=== PATIENT | male | born 1950 | race Caucasian/White ===

== ENCOUNTER 2024-01-03 11:27 | Emergency (ER) | payer MEDICARE, OTHER, SELFPAY ==
[2024-01-03 11:32] VITALS: BP 175/111
--- NOTE | 2024-01-03 11:52 | ED.GENMED ---
History of Present Illness
<Sarah Hernandes PA-C - Last Filed: 01/03/24 15:31>
General
Chief Complaint: Abdominal Symptoms
Source: patient
Exam Limitations: none
Time Seen by Provider: 01/03/24 11:51
Nursing documentation reviewed up to this point in time: agreed with
Travel History
Have you had any contact with someone who has COVID-19?: No
Do you have any symptoms of coronavirus? Fever > 100 degrees, chills, cough, shortness of breath, sore throat, loss of taste or smell, muscle aches, or headache?: No
History of Present Illness
History of Present Illness:
73-year-old male with a past medical history of hypertension, hyperlipidemia, complete heart block, diverticulitis, diabetes presenting emergency department today abdominal pain and nausea for the past 2 days. Patient states that the pain started
randomly, does not recall what he is doing when pain started. Patient states that the pain significantly improves lying down, but when he is walking or standing up, the pain is a 7 out of 10 in severity. Patient states that he feels the pain most
in the middle of his lower abdomen, but is generally felt all across abdomen. Patient has associated nausea and dry heaving but no vomiting. Patient denies any chest pain, shortness of breath, new back pain. Patient [place] any radiation of the
pain. Patient had past abdominal surgery history of hernia repair but no other surgeries. Patient denies any fevers or chills, other constitutional symptoms.
Past History
<Sarah Hernandes PA-C - Last Filed: 01/03/24 15:31>
Past History
ED Past Medical History: HTN, Hypercholesterolemia and NIDDM
Social History
Tobacco: Smoker
Personal:
Review of Systems
<Sarah Hernandes PA-C - Last Filed: 01/03/24 15:31>
Review of Systems
All Other Systems: ROS reviewed and negative except as documented in HPI and ROS
Phy Exam
<Sarah Hernandes PA-C - Last Filed: 01/03/24 15:31>
Physical Exam
Physical Exam:
Vitals: Patient is hypertensive, otherwise vital signs are stable
General: Patient is well-appearing, no acute distress
Skin: Warm and dry, no rashes or lesion
Head: Normocephalic, atraumatic
Cardiac: Regular rate and rhythm, no murmurs
Peripheral Vascular: No lower extremity swelling, 2+ DP pulses bilaterally
Pulm: Normal respiratory effort, no wheeze
Abdomen: Abdomen is mildly tender to palpation in the lower midline. Patient has no rebound tenderness, no abdominal rigidity, no organomegaly.
Neuro: AAOx3. CN II-XII intact. No focal neurologic deficits.
Course
<Sarah Hernandes PA-C - Last Filed: 01/03/24 15:31>
Orders/Labs/Results
Orders:
Orders
01/03/24 11:35
Electrocardiogram (*1) Urgent
Reason for Study: Abdominal Pain
EKG- Treatment ONCE
01/03/24 12:07
CMP [Comprehensive Metabolic Panel] Urgent
Complete Blood Count/With Diff Urgent
Lipase Urgent
01/03/24 12:18
CT Abd/pelvis W Iv Cont Urgent
Comment:
Reason For Exam: diffuse lower abdominal pain
01/03/24 12:24
Cardiac Monitoring- Treatment ONCE
01/03/24 12:34
Ketorolac [Toradol] 15 mg IV NOW STA
01/03/24 13:58
0.9% Sodium Chloride 250 ml [Nss] 250 ml IV BOLUS
Abnormal Lab Results
01/03/24
12:07
Abs Immat Gran (auto) 0.1 H 10^3/uL
(0-0.05)
Absolute Neuts (auto) 9.3 H 10^3/uL
(1.4-6.5)
Absolute Lymphs (auto) 0.7 L 10^3/uL
(1.2-3.4)
Immature Gran % 0.6 H %
(0-0.5)
Neutrophils % 87.8 H %
(42.2-75.2)
Lymphocytes % 6.4 L %
(20.5-51.1)
Sodium 126 L mmol/L
(135-145)
Chloride 95 L mmol/L
(98-107)
Creatinine 0.5 L mg/dL
(0.7-1.3)
Glucose 188 H mg/dl
(70-99)
01/03/24 12:07
01/03/24 12:07
Vital Signs
Initial and Last Documented VS:
Initial Vital Signs
Temp Pulse Resp BP Pulse Ox
98.1 F 91 16 175/111 98
01/03/24 11:32 01/03/24 11:32 01/03/24 11:32 01/03/24 11:32 01/03/24 11:32
Last Documented Vital Signs
Temp Pulse Resp BP Pulse Ox
98.1 F 80 18 174/87 97
01/03/24 11:32 01/03/24 14:45 01/03/24 13:48 01/03/24 14:23 01/03/24 14:45
<Hector Grant, DO - Last Filed: 01/03/24 12:37>
Orders/Labs/Results
Orders:
Orders
01/03/24 11:35
Electrocardiogram (*1) Urgent
Reason for Study: Abdominal Pain
EKG- Treatment ONCE
01/03/24 12:07
CMP [Comprehensive Metabolic Panel] Urgent
Complete Blood Count/With Diff Urgent
Lipase Urgent
01/03/24 12:18
CT Abd/pelvis W Iv Cont Urgent
Comment:
Reason For Exam: diffuse lower abdominal pain
01/03/24 12:24
Cardiac Monitoring- Treatment ONCE
01/03/24 12:34
Ketorolac [Toradol] 15 mg IV NOW STA
01/03/24 13:58
0.9% Sodium Chloride 250 ml [Nss] 250 ml IV BOLUS
Abnormal Lab Results
01/03/24
12:07
Abs Immat Gran (auto) 0.1 H 10^3/uL
(0-0.05)
Absolute Neuts (auto) 9.3 H 10^3/uL
(1.4-6.5)
Absolute Lymphs (auto) 0.7 L 10^3/uL
(1.2-3.4)
Immature Gran % 0.6 H %
(0-0.5)
Neutrophils % 87.8 H %
(42.2-75.2)
Lymphocytes % 6.4 L %
(20.5-51.1)
Sodium 126 L mmol/L
(135-145)
Chloride 95 L mmol/L
(98-107)
Creatinine 0.5 L mg/dL
(0.7-1.3)
Glucose 188 H mg/dl
(70-99)
01/03/24 12:07
01/03/24 12:07
Vital Signs
Initial and Last Documented VS:
Initial Vital Signs
Temp Pulse Resp BP Pulse Ox
98.1 F 91 16 175/111 98
01/03/24 11:32 01/03/24 11:32 01/03/24 11:32 01/03/24 11:32 01/03/24 11:32
Last Documented Vital Signs
Temp Pulse Resp BP Pulse Ox
98.1 F 80 18 174/87 97
01/03/24 11:32 01/03/24 14:45 01/03/24 13:48 01/03/24 14:23 01/03/24 14:45
<Sarah Hernandes PA-C - Last Filed: 01/03/24 15:31>
MDM/Problems Addressed
Differential Diagnosis Includes:
Differentials include diverticulitis, gastritis, duodenitis, appendicitis, colitis, ACS
MDM/Problems Addressed:
Abdominal pain
Chronic conditions affecting care: DM, HTN and Other (diabetes, hyperlipidemia)
Acute Exacerbation and/or Progression of Chronic Illness: DM and HTN
<Sarah Hernandes PA-C - Last Filed: 01/03/24 15:31>
*Pulse Oximetry
Patient hypoxic: no
*Critical Care Note
Total Time (30-74mins, 75-104mins- exclusive of procedures): Not Applicable
Data Reviewed
Review of Other/Old Records Reveals: Records (Reviewed ER physician documentation from 02/03/2022)
Source: patient and records
<Sarah Hernandes PA-C - Last Filed: 01/03/24 15:31>
Patient Management
Escalation/DeEscalation of care consider admission/obs:
73-year-old male with a past medical history of hypertension, hyperlipidemia, complete heart block, diverticulitis, diabetes presenting emergency department today abdominal pain and nausea for the past 2 days. Patient was evaluated by his primary
care provider today who was concerned about possible cardiac presentation because at that time, he did have shortness of breath and lightheadedness. Currently he denies shortness of breath and lightheadedness. On exam, his abdomen is soft, only
mildly tender. Urine emergency department, patient afebrile, found to have no leukocytosis but did have some hyponatremia. Patient was given IV fluids. Patient advised to follow-up with his primary care provider to have these lab values
reassessed.
Patient CT scan revealed small fat-containing inguinal hernias and a small fat-containing umbilical hernia. As well as some gas in the abdomen. I do not suspect this is contributing to patient's symptoms. No clear etiology of patient's symptoms
at this time. I advised patient to follow-up with a blood bank booking clerk regarding his symptoms. I patient return emergency department if he experiences any acute worsening of symptoms, intractable vomiting, fevers or chills, or other concerning
signs or symptoms. Patient medically stable for discharge.
ED Attending Note
<Sarah Hernandes PA-C - Last Filed: 01/03/24 15:31>
-
Portions of this chart may have been created with voice recognition software.� Occasional wrong word or��sound alike� substitutions may have occurred due to the inherent limitations of voice recognition software.
<Hector Grant DO - Last Filed: 01/03/24 12:37>
ED Attending Note
Patient seen and examined by attending physician: Yes
I performed the substantive portion of visit, reviewed & personally made and approve the management plan that is documented in note by myself or ADE.: Yes
ED Attending Note:
I have seen and evaluated the patient with a [id number] encounter. I have spoken to the advance practicer provider and involved in the medical history, the physical exam, medical decision making.
Evaluation and management service: agree unless noted differently below.
Results interpretation: agree unless noted differently below.
Focused HPI: 73-year-old male presenting with abdominal pain for a few days. This is associated with nausea. Symptoms do get better when he lays down. He went to his PCP office and was sent in for evaluation. Patient does complain of chest pain
and shortness of breath but this appears to occur only when he developed the abdominal pain. Symptoms are not worse with exertion
Physical exam: Mildly uncomfortable. Point tenderness to left mid abdomen
Medical Decision Making: Given his abdominal exam, will obtain CT. Doubt abdominal pain being ACS equivalent. EKG unchanged from prior
Discharge Plan
Departure
Patient Disposition: Home (Routine Discharge)
Date of Disposition: 01/03/24
Time of Disposition: 15:08
Patient with high blood pressure during this ER visit?: Yes
Condition: Good
Discharge Problem:
Abdominal pain
Instructions: Abdominal Pain, BLOOD PRESSURE
Prescriptions:
No Action
atorvastatin 40 MG tablet
40 mg PO DAILY
pioglitazone 45 MG tablet
45 mg PO DAILY
glipizide 5 MG tablet extended release 24hr
10 mg PO DAILY
valsartan 80 MG tablet
80 mg PO DAILY
furosemide 20 MG tablet
20 mg PO DAILY
sitagliptin phosphate [Januvia] 100 MG tablet
100 mg PO DAILY
metformin 500 MG tablet
500 mg PO DAILY Qty: 0 0RF
Rx Instructions:
HOLD metformin post procedure- OK to resume on Tuesday 02/06 in AM
Referrals:
Cecil Chavez MD [Active] - Call in 1-3 days for appt
Stevie Jackson MD [Family Provider] -
Activity Restrictions/Additional Instructions:
Today, you sodium level was low. We gave you some IV fluids to help this. It is important to have this level rechecked with your primary care provider.
We have given you a referral for a blood bank booking clerk to help further evaluate your symptoms. You can call the office to set up an appointment.
Please return emergency department if you experience chest pain, shortness of breath, acute worsening of your pain, intractable vomiting, or other concerning signs or symptoms.
Interventions
Interventions:
*Risk Screen - Suicide Last Done: 01/03/24 12:11
*General Assessment Last Done: 01/03/24 12:11
*Neglect/Abuse Screening Last Done: 01/03/24 12:11
ED- Fall Risk Assessment Last Done: 01/03/24 12:11
*ED COVID-19 Vaccine History Last Done: 01/03/24 11:32
*Nursing Disposition Last Done: 01/03/24 15:26
GR-Occhmu-Dwctuycoxo Assessment Last Done: 01/03/24 12:11
Discharge Date and Time
Print Language: PERSIAN
[2024-01-03 11:56] VITALS: BMI 31.0
[2024-01-03 12:16] LABS: % Basophils 0.3 % (0-2); % Immature Granulocytes 0.6 % (0-0.5); % Lymphocytes 6.4 % (20.5-51.1); % Monocytes 4.9 % (1.7-9.3); % Neutrophils 87.8 % (42.2-75.2); Absolute Immature Granulocytes 0.1 10^3/uL (0-0.05); Absolute Lymphocytes 0.7 10^3/uL (1.2-3.4); Absolute Monocytes 0.5 10^3/uL (0.1-0.6); Absolute Neutrophils 9.3 10^3/uL (1.4-6.5); Hematocrit 44.1 % (39.0-52.0); Hemoglobin 15.4 g/dL (13.0-18.0); Mean Corp Hgb Conc. 34.9 g/dL (33.0-37.0); Mean Corpuscular Hgb 29.4 pg (27.0-31.0); Mean Corpuscular Volume 84.3 fL (80.0-94.0); Mean Platelet Volume 8.4 fL (7.4-10.4); Nucleated Red Blood Cells % 0 % (-); Platelet Count 302 10^3/uL (130-400); Red Blood Cell Count 5.23 10^6/uL (4.70-6.10); White Blood Cell Count 10.6 10^3/uL (4.8-10.8)
[2024-01-03 12:41] LABS: ALT (SGPT) 20 U/L (0-50); AST (SGOT) 25 U/L (17-59); Albumin 4.5 g/dl (3.5-5.0); Alkaline Phosphatase 77 U/L (38-126); Blood Urea Nitrogen 10 mg/dl (9-20); Calcium 9.4 mg/dl (8.4-10.2); Carbon Dioxide 24 mmol/L (22-30); Chloride 95 mmol/L (98-107); Estimated Creatinine Clearance > 125 ml/min; Glucose 188 mg/dl (70-99); Lipase 63 U/L (23-300); Potassium 4.4 mmol/L (3.5-5.1); Sodium 126 mmol/L (135-145); Total Bilirubin 0.7 mg/dl (0.2-1.3); Total Protein 7.1 g/dl (6.3-8.2); eGFR > 60.00
[2024-01-03] MEDS: TORADOL 15 MG IV (13:00)
[2024-01-03 13:48] VITALS: BP 190/85
[2024-01-03 14:23] VITALS: BP 174/87
[2024-01-03] MEDS: NSS 250 IV (14:31)
[2024-01-03 15:00] VITALS: BP 165/76
== END 2024-01-03 15:27 | disposition home or self-care (01) ==
LOC: EMR 11:27
PROVIDERS: EMERGENCY PHYSICIAN Student in an Organized Health Care Education/Training Program; FAMILY PHYSICIAN Family Medicine
DX: R10.9 Unspecified abdominal pain (principal); R07.9 Chest pain, unspecified; R06.02 Shortness of breath; R42 Dizziness and giddiness; R11.0 Nausea; E78.00 Pure hypercholesterolemia, unspecified; I44.2 Atrioventricular block, complete; K40.20 Bilateral inguinal hernia, without obstruction or gangrene, not specified as recurrent; E87.1 Hypo-osmolality and hyponatremia; E11.8 Type 2 diabetes mellitus with unspecified complications; I10 Essential (primary) hypertension
CPT/HCPCS: 99285; 96374; 74177; 80053; 83690; 85025; 93005; Q9967

== ENCOUNTER → 2024-01-09 07:50 | Outpatient (REF) | payer MEDICARE, OTHER, SELFPAY | LOC: HWRAD 07:50 | PROVIDERS: ATTENDING PHYSICIAN Internal Medicine Gastroenterology; FAMILY PHYSICIAN Family Medicine | DX: R10.13 Epigastric pain (principal); R11.0 Nausea; R14.0 Abdominal distension (gaseous) | CPT/HCPCS: 71046; 74018 ==

== ENCOUNTER → 2024-01-10 06:26 | Day surgery (SDC) | payer MEDICARE, OTHER, SELFPAY ==
[2024-01-10 09:33] LABS: Glucose - Point of Care 155 mg/dl (70-99)
== END ==
LOC: GI 06:26
PROVIDERS: ATTENDING PHYSICIAN Internal Medicine Gastroenterology; FAMILY PHYSICIAN Family Medicine
DX: K22.70 Barrett's esophagus without dysplasia (principal); K29.80 Duodenitis without bleeding; K31.89 Other diseases of stomach and duodenum; K44.9 Diaphragmatic hernia without obstruction or gangrene; R10.9 Unspecified abdominal pain; K30 Functional dyspepsia
CPT/HCPCS: 43239; 88305; 82962; 88342

== ENCOUNTER → 2024-02-08 07:03 | Outpatient (REF) | payer MEDICARE, OTHER, SELFPAY | LOC: HWRCS 07:03 | PROVIDERS: ATTENDING PHYSICIAN Nurse Practitioner; FAMILY PHYSICIAN Family Medicine | DX: I44.2 Atrioventricular block, complete (principal); R06.00 Dyspnea, unspecified | CPT/HCPCS: 93306 ==

== ENCOUNTER 2024-06-06 17:05 | Observation (INO) | payer MEDICARE, OTHER, SELFPAY ==
[2024-06-06] VITALS (7 sets, daily range): BP systolic 104–130; BP diastolic 49–73; BMI 28.1; BMI 29.2
--- NOTE | 2024-06-06 10:58 | ED.PDOC.TRB ---
ED Provider Triage
-
Sent in by PMD for fatigue, SOB. History of low sodium. PMD thought this could be the case again. Seen in triage, labs, EKG and CXR ordered. No acute distress currently.
[2024-06-06 11:16] LABS: % Basophils 0.2 % (0-2); % Immature Granulocytes 0.4 % (0-0.5); % Lymphocytes 3.4 % (20.5-51.1); % Monocytes 8.6 % (1.7-9.3); % Neutrophils 87.4 % (42.2-75.2); Absolute Immature Granulocytes 0.1 10^3/uL (0-0.05); Absolute Lymphocytes 0.4 10^3/uL (1.2-3.4); Absolute Monocytes 1.1 10^3/uL (0.1-0.6); Absolute Neutrophils 10.9 10^3/uL (1.4-6.5); Hemoglobin 14.3 g/dL (13.0-18.0); Mean Corp Hgb Conc. 35.8 g/dL (33.0-37.0); Mean Corpuscular Hgb 28.6 pg (27.0-31.0); Mean Platelet Volume 9.4 fL (7.4-10.4); Nucleated Red Blood Cells % 0 % (-); Platelet Count 176 10^3/uL (130-400); Red Cell Dist. Width 14.6 % (11.5-14.5); White Blood Cell Count 12.5 10^3/uL (4.8-10.8)
[2024-06-06 11:32] LABS: ALT (SGPT) 225 U/L (0-50); AST (SGOT) 165 U/L (17-59); Albumin 3.9 g/dl (3.5-5.0); Alkaline Phosphatase 339 U/L (38-126); Blood Urea Nitrogen 11 mg/dl (9-20); Calcium 8.9 mg/dl (8.4-10.2); Carbon Dioxide 19 mmol/L (22-30); Chloride 92 mmol/L (98-107); Glucose 265 mg/dl (70-99); Sodium 125 mmol/L (135-145); Total Bilirubin 2.7 mg/dl (0.2-1.3); Total Protein 6.4 g/dl (6.3-8.2); eGFR > 60.00
[2024-06-06 11:40] LABS: NT-proBNP 806 pg/ml
--- NOTE | 2024-06-06 12:44 | ED.GENMED ---
History of Present Illness
General
Chief Complaint: Breathing Problem
Source: patient, records and spouse
Exam Limitations: none
Time Seen by Provider: 06/06/24 12:27
Nursing documentation reviewed up to this point in time: agreed with
History of Present Illness
History of Present Illness:
Patient is a 73-year-old male Who presents to the emergency department from his doctor's office for increasing shortness of breath for the past few days. Patient's had pressure in his temporal and posterior head. Patient send nonproductive cough.
Patient has had chills without fever. Patient tested negative for COVID at the doctor's office today. Patient denies chest pain. Patient denies any orthopnea or edema. Patient has been having hiccups for the past 3 days. Patient denies any
abdominal pain, nausea, vomiting or diarrhea. Patient denies any symptoms.
Past History
Past History
ED Past Medical History: Arrthythmia (Patient has pacemaker), HTN, Hypercholesterolemia, NIDDM and Other (Colon polyps)
Social History
Tobacco: Smoker
Personal:
Review of Systems
Review of Systems
All Other Systems: ROS reviewed and negative except as documented in HPI and ROS
Constitutional: Reports fatigue and chills; Denies fever
EENT: Reports no symptoms
Respiratory: Reports cough and trouble breathing
Cardiac: Reports no symptoms
ABD/GI: Reports other (Hiccups); Denies abdominal pain, nausea, vomiting, diarrhea or constipated
: Reports no symptoms
Musculoskeletal: Reports no symptoms
Skin: Reports no symptoms
Neurological: Reports no symptoms
Hematologic/Lymphatic: Reports no symptoms
Phy Exam
Physical Exam
Physical Exam:
Physical Exam
General: mild distress, alert and appropriate, well nourished, well hydrated
HENT: Normocephalic, supple with no lymphadenopathy, no thyromegaly
Eyes: sclera mildly icteric, conjuctiva without injection
Heart: Regular rhythm and rate. No S3, S4. No murmur. No NVD
Lungs: mild respiratory distress, no stridor, lung sounds with mild scattered rhonchi and mild expiratory wheezing but otherwise equal bilaterally
Abdomen: Soft, nontender, no organomegaly, no CVA tenderness, BS good
Neuro: Alert and oriented x 3, CN II - XII intact, no motor focality, no cerebellar dysfunction
Skin: no rash
Psychiatric: well kept. interactive and cooperative
Extremities: No cyanosis, tenderness. Trace pretibial edema bilaterally
Scores
Heart Failure Risk
Heart Failure Risk Score: Not Applicable
Heart Score for Chest Pain Patients
STEMI patient?: Not applicable
Withdrawal Assessment of Alcohol
Withdrawal Assessment Completed?: Not applicable
Course
Orders/Labs/Results
Orders:
Orders
06/06/24 10:51
Electrocardiogram (*1) Urgent
Reason for Study: Tachycardia
EKG- Treatment ONCE
06/06/24 11:04
Complete Blood Count/With Diff Urgent
Comprehensive Metabolic Panel Urgent
NT-proBNP Urgent
Serum Osmolality Urgent
TSH Reflex To Free T4 Urgent
Comment: SERUM OSMOLALITY & TSH REFLEX ADDED ON BY FLOOR 12:40PM 06-06-24
06/06/24 11:26
CR Chest - 2 Views Urgent
Comment:
Reason For Exam: SOB
06/06/24 12:41
Add On- LAB Urgent
Tests Added?: serum osmality, TSH reflex T4
Ipratropium/Albuterol Sulfate [Duoneb] 3 ml INH R NOW STA
US Abdomen Complete/Upper Urgent
Comment:
Reason For Exam: elevated LFT's bilirubin
06/06/24 14:27
Osmolality, Random Urine Urgent
Date Specimen was Collected: 06/06/24
Time Specimen was Collected: 14:22
Urinalysis Reflex To Culture Urgent
Date Specimen was Collected: 06/06/24
Time Specimen was Collected: 14:22
Urine Microscopic Reflex Cult Urgent
Urine Sodium Urgent
Date Specimen was Collected: 06/06/24
Time Specimen was Collected: 14:22
06/06/24 Dinner
2000 calorie (17 carb) Diabetic
At Your Request: Full Participation
06/06/24 15:25
0.9% Sodium Chloride 500 ml [Nss] 500 ml IV BOLUS
Dexamethasone Sod Phosphate [Decadron] 10 mg IV NOW STA
06/06/24 16:51
Admit/Transfer Patient As Directed
Co-Sign Provider:
Level of Care: Observation services
Assign to:: Medical/Surgical
Physician / Group: jesús
Diagnosis: viral uri
PRN Pain Medication Management As Directed
May give lesser potent ordered pain med per pt: Yes
preference::
Protocol:: Medication orders for pain may be administered in a
manner that supports deferring to patient preference
when the pt is:
- Requesting an ordered lesser potent pain medication.
Least to most potent pain medications are defined
as: acetaminophen < NSAID < tramadol < opioids
(morphine, oxycodone, hydromorphone).
- Requesting a lesser dose of the same medication IF
ORDERED.
- Requesting a less intrusive route of administration
if both routes are prescribed by the provider (PO <
IV).
06/06/24 16:52
Code Status As Directed
Resuscitation Status: Do not resuscitate
Reached after discussion with pt or family/Healthcare POA: Yes
DNR Bracelet Application ONCE
06/06/24 16:59
Osmolality, Random Urine Urgent
Urine Sodium Urgent
06/06/24 17:03
COVID-19 Antigen Urgent
Source: Nasal Swab
06/06/24 19:23
Acetaminophen [Tylenol] 650 mg PO Q4HPRN PRN
Dextrose 50%-Water [Dextrose 50% Syringe] 12.5 grams IV [id number] PRN
Famotidine [Pepcid] 20 mg PO DAILYPRN PRN
Glucagon [GlucaGen] 1 mg IM PRN PRN
Ipratropium/Albuterol Sulfate [Duoneb] 3 ml INH R Q4HPRN PRN
06/06/24 19:23
Activity As Directed
Activity Level: As Tolerated
Bedside Glucose Monitoring As Directed
Frequency: AC&HS
Additional Instructions:: Change to q6h if pt on TPN, tube feeding or not eating
Vital Signs As Directed
Frequency: Per unit guidelines
DX Deep Vein Thrombosis Video Routine
06/06/24 20:00
Heparin 5,000 units SC Q12
06/07/24 06:00
Complete Blood Count/With Diff IN AM
Comprehensive Metabolic Panel IN AM
Glycohemoglobin (HgbA1c) IN AM
06/07/24 07:30
Insulin Aspart Corrective Low [Novolog Flexpen-Low Resistance] See Protocol SC AC
06/07/24 08:00
Aspirin Chewable [Low Strength Aspirin] 81 mg PO DAILY
Atorvastatin [Lipitor] 40 mg PO DAILY
Valsartan [Diovan] 80 mg PO DAILY
esomeprazole magnesium 40 mg PO DAILY
Abnormal Lab Results
06/06/24 06/06/24 06/06/24
11:04 14:27 15:25
WBC 12.5 H 10^3/uL
(4.8-10.8)
RDW 14.6 H %
(11.5-14.5)
Abs Immat Gran (auto) 0.1 H 10^3/uL
(0-0.05)
Absolute Neuts (auto) 10.9 H 10^3/uL
(1.4-6.5)
Absolute Lymphs (auto) 0.4 L 10^3/uL
(1.2-3.4)
Absolute Monos (auto) 1.1 H 10^3/uL
(0.1-0.6)
Neutrophils % 87.4 H %
(42.2-75.2)
Lymphocytes % 3.4 L %
(20.5-51.1)
Sodium 125 L mmol/L
(135-145)
Chloride 92 L mmol/L
(98-107)
Carbon Dioxide 19 L mmol/L
(22-30)
Glucose 265 H mg/dl
(70-99)
Serum Osmolality 260 L mOsm/kg
(275-300)
Total Bilirubin 2.7 H mg/dl
(0.2-1.3)
AST 165 H U/L
(17-59)
ALT 225 H U/L
(0-50)
Alkaline Phosphatase 339 H U/L
(38-126)
Urine Ketones 1+ A
(Negative)
Urine Bilirubin 1+ A
(Negative)
Urine Urobilinogen 3+ A
(Neg - 1+)
Leukocyte Esterase Rfl Trace A
(Negative)
Urine Bacteria (Reflex) Few A
(Negative)
Urine Sodium 16 L mmol/L
(30-90)
Urine Glucose 3+ A
(Negative)
Urine Albumin (Reflex) 1+ A
(Neg - Trace)
POC Glucose 263 H mg/dl
(70-99)
06/06/24 11:04
06/06/24 11:04
Vital Signs
Initial and Last Documented VS:
Initial Vital Signs
Temp Pulse Resp Pulse Ox
97.5 F 104 22 97
06/06/24 10:47 06/06/24 10:47 06/06/24 10:47 06/06/24 10:47
Last Documented Vital Signs
Temp Pulse Resp BP Pulse Ox
97.5 F 71 18 128/61 97
06/06/24 10:47 06/06/24 19:23 06/06/24 19:23 06/06/24 19:23 06/06/24 19:23
*Radiology
Radiology exam reviewed: radiology read reviewed (Chest x-ray and ultrasound essentially unremarkable)
*Pulse Oximetry
Patient hypoxic: no
*EKG
Interpreted by ED Provider?: Yes
EKG Intrepretation Date: 06/06/24
EKG Intrepretation Time: 12:49
Interpretation: abnormal
Comparison EKG: no changes
Heart Rate: 95
Rate: normal
Rhythm: sinus
Bonn[place]: left axis deviation
Interval: normal QT interval and first degree heart block
QRS Pattern: right bundle branch block
Ischemia: non-specific ST changes
*Offset Press Operator Apprentice Interpretation
Rate: normal
Interpretation: normal
Heart Rate: 95
Rhythm: sinus
*Critical Care Note
Total Time (30-74mins, 75-104mins- exclusive of procedures): Not Applicable
Update Note
Update Note:
Patient primarily has respiratory issues but physical exam and laboratories show elevated liver enzymes as well as decreased sodium. Patient's had issues with his sodium before. Patient is on Lasix. Will check urine and serum for osmolality and
sodium. In addition the hiccups could be from inflammatory state of the liver. Will do an ultrasound.
1524 patient's workup is rather unremarkable except for the hyponatremia. Patient has had this before. However given patient's symptoms patient will be admitted.
ED Attending Note
-
Portions of this chart may have been created with voice recognition software.� Occasional wrong word or��sound alike� substitutions may have occurred due to the inherent limitations of voice recognition software.
Discharge Plan
Departure
Patient Disposition: Admit
Date of Disposition: 06/06/24
Time of Disposition: 15:24
Admit to: Telemetry
Admit to doctor: Hospitalist
Presentation/result/management discussed w/ accepting MD/DO: Hospitalist
Patient with high blood pressure during this ER visit?: No
Condition: Serious
Covid-19: Not Applicable
Discharge Problem:
Acute hyponatremia, Acute bronchitis
Interventions
Interventions:
*Risk Screen - Suicide Last Done: 06/06/24 12:33
*General Assessment Last Done: 06/06/24 12:33
*Neglect/Abuse Screening Last Done: 06/06/24 12:33
ED- Fall Risk Assessment Last Done: 06/06/24 16:03
*ED COVID-19 Vaccine History Last Done: 06/06/24 12:33
*Nursing Disposition Last Done: 06/06/24 19:10
ED- Cardiac Assessment Last Done: 06/06/24 16:03
ED- Pulmonary Assessment Last Done: 06/06/24 16:03
Discharge Date and Time
Discharge Date/Time: 06/06/24 19:11
[2024-06-06] MEDS: DUONEB 3 ML INH (13:00)
[2024-06-06 14:44] LABS: Urine Albumin 1+ (Neg - Trace); Urine Bilirubin 1+ (Negative); Urine Character Clear (Clear); Urine Color Yellow; Urine Glucose 3+ (Negative); Urine Ketone 1+ (Negative); Urine Leukocyte Trace (Negative); Urine Nitrite Negative (Negative); Urine Occult Blood Negative (Negative); Urine Specific Gravity 1.015 (<1.030); Urine Urobilinogen 3+ (Neg - 1+)
[2024-06-06 14:49] LABS: Osmolality Urine 417 mOsm/kg (300-900)
[2024-06-06 14:51] LABS: Urine Bacteria Few (Negative); Urine Mucus Moderate; Urine Red Blood Cell 0-2 /HPF (0-2)
[2024-06-06 15:04] LABS: Urine Sodium 16 mmol/L (30-90)
[2024-06-06 15:28] LABS: Glucose - Point of Care 263 mg/dl (70-99)
[2024-06-06] MEDS: NSS 500 IV (15:48)
[2024-06-06] MEDS: DECADRON 10 MG IV (15:48)
[2024-06-06 15:58] LABS: Osmolality Serum 260 mOsm/kg (275-300)
[2024-06-06 16:30] LABS: TSH Reflex To Free T4 0.58 uIU/ml (0.47-4.68)
--- NOTE | 2024-06-06 16:56 | HPS.HSE ---
Family Physician
-
Family Physician: Stevie Jackson
Chief Complaint
-
shortness of breath
History of Present Illness
73-year-old male past medical history of pacemaker, hypertension, GERD, hypercholesteremia, diabetes, colon polyps, presenting from doctor's office for increasing shortness of breath for the past few days. Shortness of breath occurs at rest. He
has had pressure in his temporal and posterior head. He has nonproductive cough. He denies any sore throat or runny nose. He has chills without fever. He tested negative for COVID at the doctor's office. He denies any chest pain. He denies any
swelling. He has been having hiccups for the past 3 days which is better currently. He denies any abdominal pain, nausea or vomiting. He denies any urinary symptoms.
He smokes half a pack of cigarettes per day. He drinks 2 cans of beer before dinner every night.
Medical History
Past Medical History
Past Medical History: Reports Other (pacemaker, hypertension, GERD, hypercholesteremia, diabetes, colon polyps, )
Past Surgical History: Reports None
Social History
Tobacco: Smoker
Alcohol: Daily
Drug: None
Family History
Family History: Not pertinent
Allergies / Home Medications
Allergies reflects when Allergies were last updated in [facility].
Home Medications with original date entered in [facility]
Allergy/Medication List:
Allergies
Allergy/AdvReac Type Severity Reaction Status Date / Time
No Known Allergies Allergy Verified 06/06/24 10:51
Home Medications
atorvastatin 40 mg tablet 40 mg PO DAILY High cholesterol 09/21/10
pioglitazone 45 mg tablet 45 mg PO DAILY Diabetes 09/21/10
valsartan 80 mg tablet 80 mg PO DAILY Blood pressure 02/03/22
metformin 500 mg tablet 500 mg PO DAILY Diabetes ##0 02/04/22
aspirin 81 mg chewable tablet 81 mg PO DAILY 06/06/24
esomeprazole magnesium 40 mg capsule,delayed release 40 mg PO DAILY 06/06/24
famotidine 20 mg tablet 20 mg PO DAILYPRN PRN gerd 06/06/24
glipizide 10 mg tablet, extended release 24 hr 10 mg PO BID 06/06/24
Review of Systems
-
History Source: Patient
A 12 point ROS was completed and negative except as noted: Yes
Constitutional: Reports No Symptoms
EENT: Reports No Symptoms
Respiratory: Reports See HPI
Cardiac: Reports No Symptoms
Abdomen/GI: Reports No Symptoms
: Reports No Symptoms
Musculoskeletal: Reports No Symptoms
Skin: Reports No Symptoms
Neurological: Reports No Symptoms
Endocrine: Reports No Symptoms
Hematologic/Lymphatic: Reports No Symptoms
Psych: Reports No Symptoms
Physical Exam
Vital Signs
Vital Signs
Temp Pulse Resp BP Pulse Ox
97.5 F 79 19 107/57 99
06/06/24 10:47 06/06/24 16:00 06/06/24 16:00 06/06/24 15:00 06/06/24 16:00
Physical Exam
General: Well Developed, Well Nourished and No Apparent Distress
HEENT: NormoCephalic, Moist mucous membranes and Atraumatic
Respiratory: Clear and Rhonchi (scattered )
Cardiac: S1/S2 and Regular Rhythm; No Murmur or Rub
GI: Soft, Non Tender, Non Distended and Normal Bowel Sounds; No Organomegaly
Rectal: Deferred by Provider
Musculoskeletal: No Clubbing, No Cyanosis and No Edema
Skin: No Rash
Neuro: Nonfocal/grossly intact
Laboratory Results
-
06/06/24 11:04
06/06/24 11:04
Laboratory Results
Total Bilirubin 2.7 mg/dl (0.2-1.3) H 06/06/24 11:04
AST 165 U/L (17-59) H 06/06/24 11:04
ALT 225 U/L (0-50) H 06/06/24 11:04
Alkaline Phosphatase 339 U/L (38-126) H 06/06/24 11:04
Data Reviewed
-
Lab Data: Labs Reviewed by me
Old Records: Reviewed
Impression/Plan
-
IMPRESSION:
PLAN:
# Likely viral URI/acute bronchitis
-Scattered rhonchi on examination
-Not hypoxic
-COVID-negative primary care physician office
-Chest x-ray unremarkable
-Recheck COVID here,
-DuoNebs as needed
-Received dexamethasone in ER, will hold further steroids
# Transaminitis possibly secondary to viral infection versus choledocholithiasis
-No abdominal pain or tenderness
-Abdominal ultrasound shows gallbladder sludge without signs of acute cholecystitis
-Continue to monitor for now
# Hiccups
-have unusually improved after receving dexamethasone
# Chronic hyponatremia likely secondary to SIADH
-Sodium previously 126, now 125
-Given IV fluids
-Check urine sodium, osmolality
Essential hypertension
-Continue valsartan
History of pacemaker
GERD
-Continue esomeprazole, famotidine
Hypercholesterolemia
-Continue statin
Type 2 diabetes
-Hold metformin
-Hold glipizide, pioglitazone
-Insulin sliding scale
Daily smoker
-Nicotine patch
Daily alcohol use
-No signs of withdrawal
History of colon polyps
DNR/DNI
DVT prophylaxis�heparin
Diabetic diet
[2024-06-06 17:39] LABS: COVID-19 Antigen Negative (Negative)
--- NOTE | 2024-06-06 21:00 | PTCARENOTE ---
Pt. adm from ED with URI. Negative for COVID. Crackles throughout. AOx3. EKG in ED showed Sinus rhythm with 1st degree heart block. Pt. educated on using the call merida. Bed in lowest position.
[2024-06-06] MEDS: HEPARIN 5000 UNITS SC (21:05)
[2024-06-06 21:33] LABS: Glucose - Point of Care 344 mg/dl (70-99)
[2024-06-06] MEDS: NOVOLOG FLEXPEN 8 UNITS SC (21:54)
[2024-06-07 00:22] LABS: Glucose - Point of Care 258 mg/dl (70-99)
[2024-06-07 07:11] LABS: Glucose - Point of Care 239 mg/dl (70-99)
[2024-06-07 07:20] VITALS: BP 148/75
[2024-06-07 07:27] LABS: % Basophils 0.2 % (0-2); % Immature Granulocytes 0.4 % (0-0.5); % Lymphocytes 4.3 % (20.5-51.1); % Monocytes 5.7 % (1.7-9.3); % Neutrophils 89.4 % (42.2-75.2); Absolute Lymphocytes 0.4 10^3/uL (1.2-3.4); Absolute Monocytes 0.6 10^3/uL (0.1-0.6); Absolute Neutrophils 8.8 10^3/uL (1.4-6.5); Hematocrit 37.5 % (39.0-52.0); Hemoglobin 13.1 g/dL (13.0-18.0); Mean Corp Hgb Conc. 34.9 g/dL (33.0-37.0); Mean Corpuscular Hgb 27.7 pg (27.0-31.0); Mean Corpuscular Volume 79.3 fL (80.0-94.0); Mean Platelet Volume 9.3 fL (7.4-10.4); Nucleated Red Blood Cells % 0 % (-); Platelet Count 162 10^3/uL (130-400); Red Blood Cell Count 4.73 10^6/uL (4.70-6.10); Red Cell Dist. Width 14.6 % (11.5-14.5); White Blood Cell Count 9.8 10^3/uL (4.8-10.8)
[2024-06-07 07:57] LABS: ALT (SGPT) 150 U/L (0-50); AST (SGOT) 69 U/L (17-59); Albumin 3.4 g/dl (3.5-5.0); Alkaline Phosphatase 257 U/L (38-126); Blood Urea Nitrogen 15 mg/dl (9-20); Calcium 8.8 mg/dl (8.4-10.2); Carbon Dioxide 22 mmol/L (22-30); Chloride 97 mmol/L (98-107); Estimated Creatinine Clearance 120 ml/min; Glucose 254 mg/dl (70-99); Potassium 4.2 mmol/L (3.5-5.1); Sodium 131 mmol/L (135-145); Total Bilirubin 1.1 mg/dl (0.2-1.3); Total Protein 5.8 g/dl (6.3-8.2); eGFR > 60.00
[2024-06-07] MEDS: NOVOLOG FLEXPEN-LOW RESISTANCE 2 UNITS SC (08:05)
[2024-06-07] MEDS: LOW STRENGTH ASPIRIN 81 MG PO (08:06)
[2024-06-07] MEDS: HEPARIN 5000 UNITS SC (08:06)
[2024-06-07] MEDS: PROTONIX 40 MG PO (08:06)
[2024-06-07] MEDS: DIOVAN 80 MG PO (08:06)
[2024-06-07 08:19] VITALS: BP 148/75
[2024-06-07 08:21] LABS: Osmolality Urine 480 mOsm/kg (300-900); Urine Sodium 27 mmol/L (30-90)
[2024-06-07 08:49] LABS: Glycohemoglobin (HgbA1c) 8.5 % (4.0-5.6)
--- NOTE | 2024-06-07 09:21 | W.PN.HOSP.TC ---
Today's Communication/Plan
-
Discharge planning today
Assessment / Plan
Assessment / Plan
Physical exam:
General: Well Developed, Well Nourished and No Apparent Distress
HEENT: Normocephalic, Atraumatic and Moist Mucous Membranes
Respiratory: Clear to Auscultation; Negative Wheezes, Rales or Rhonchi
Cardiac: Regular Rhythm and S1/S2
GI: Soft, Nontender and Nondistended
Musculoskeletal: No Clubbing, No Cyanosis and No Edema
Neuro: Awake, Alert and Oriented
Psych: Calm
A/P:
# Likely viral URI/acute bronchitis
-Scattered rhonchi on examination
-Not hypoxic
-COVID-negative primary care physician office
-Chest x-ray unremarkable
-Recheck COVID here and negative
-DuoNebs as needed
-Received dexamethasone in ER, will hold further steroids. Also hold off on any antibiotics.
-Patient feels back to his baseline so planning on discharging him today.
# Transaminitis possibly secondary to viral infection
-No abdominal pain or tenderness--> no signs of cholecystitis, cholangitis, or choledocholithiasis.
-Abdominal ultrasound shows gallbladder sludge without signs of acute cholecystitis
-Patient on statins but even on it patient's LFTs are trending down.
-Recommended to repeat LFTs in a week to make sure continue to trend in the right direction
# Hiccups
-have unusually improved after receving dexamethasone. Remains normal today off steroids.
# Chronic hyponatremia likely secondary to SIADH
-Sodium previously 126, now 125--> today sodium 131. Recommended to repeat sodium and within 1 week as outpatient.
-Given IV fluids
-Check urine sodium, osmolality--> urine sodium 27 and urine osmolality 480
Essential hypertension
-Continue valsartan
History of pacemaker
GERD
-Continue esomeprazole, famotidine
Hypercholesterolemia
-Continue statin
Type 2 diabetes
-He does have hyperglycemia and we discussed the possibility of insulin treatment. Patient and at bedside and patient is adamant he does not want insulin management at the moment. Otherwise, there is not much room on increasing his oral
hypoglycemic but hopefully with a viral syndrome improvement so we will his hyperglycemia but he does need close follow-up as outpatient. Patient tells me he will check his blood sugars and will bring it to his primary care as outpatient.
Recommend to restart all his oral hypoglycemics now. I think it is reasonable especially with his hemoglobin A1c being 8.5.
-Insulin sliding scale
Daily smoker
-Nicotine patch
Daily alcohol use
-No signs of withdrawal
History of colon polyps
DNR/DNI
DVT prophylaxis�heparin
Anticipated Discharge: Today
Subjective/Interval History
-
Date of Service: June 07, 2024
Patient feels back to his baseline. No shortness of breath. Mild dry cough. No abdominal pain nausea vomiting or diarrhea. Afebrile. Alert and oriented.
Objective Data
-
Labs:
Laboratory Results
06/07/24
06:51
WBC 9.8
Hgb 13.1
Hct 37.5 L
Plt Count 162
Sodium 131 L
Potassium 4.2
Chloride 97 L
Carbon Dioxide 22
BUN 15
Creatinine 0.6 L
Glucose 254 H
Calcium 8.8
Total Bilirubin 1.1 D
AST 69 H
ALT 150 H
Alkaline Phosphatase 257 H
Vital Signs:
Vital Signs
Temp Pulse Resp BP Pulse Ox
97.5 F 75 16 148/75 97
06/07/24 07:20 06/07/24 08:06 06/07/24 07:20 06/07/24 08:06 06/07/24 07:20
I&O
06/06/24 06/07/24 06/08/24
06:59 06:59 06:59
Intake Total 480 / 480
Balance 480 / 480
[2024-06-07 11:57] LABS: Glucose - Point of Care 313 mg/dl (70-99)
[2024-06-07] MEDS: NOVOLOG FLEXPEN-LOW RESISTANCE 4 UNITS SC (12:10)
--- NOTE | 2024-06-07 13:55 | W.DCSUMMARY ---
Discharge Summary
Discharge Data
Date of Admission: 06/06/24
Date of Discharge: 06/07/24
-
Pending Results: No
Hospital Course
Patient 73 years old male history of hypertension, pacemaker, GERD, hyperlipidemia, diabetes mellitus presented to the hospital some shortness of breath nonproductive cough and generalized malaise and it was felt to be a viral syndrome. Patient had
a workup here in the hospital unremarkable for bacterial active infection. Patient had some electrolyte abnormalities that improved. His sodium went up to 131. WBC back down to normal. Patient also has some mild increased LFTs that we will be
follow-up as outpatient but currently trending down. Patient also had some hyperglycemia and discussions about use of insulin was taken but patient does not want to use insulin at this point in time and wants to keep current regimen of his oral
hypoglycemics. Instructed to follow-up very closely with PCP and write down his blood sugars over the next several days. We discussed about watching him one more day and getting some cultures but since he is feeling much better and back to his
baseline he does not want to stay. Patient very eager to go home today. He will be discharged in stable condition today.
Discharge Plan
-
Patient Disposition: Home (Routine Discharge)
Discharge Diagnosis/Procedures: Suspicion for viral syndrome. Hyponatremia. Elevated liver function tests. Diabetes mellitus with hyperglycemia. Leukocytosis.
Diet: Diabetic, Carb Controlled
Activity: As tolerated
Blood Work: Please PCP to order CBC, CMP within 1 week
Referrals:
Stevie Jackson MD [Family Provider] - in less than 1 week
Prescriptions:
Continued
atorvastatin 40 MG tablet
40 mg PO DAILY
pioglitazone 45 MG tablet
45 mg PO DAILY
valsartan 80 MG tablet
80 mg PO DAILY
metformin 500 MG tablet
500 mg PO DAILY Qty: 0 0RF
glipizide 10 mg Tablet Extended Release 24hr
10 mg PO BID
famotidine 20 mg Tablet
20 mg PO DAILYPRN PRN (Reason: gerd)
esomeprazole magnesium 40 mg Capsule,Delayed Release(Dr/Ec)
40 mg PO DAILY
aspirin 81 mg Tablet,Chewable
81 mg PO DAILY
Discharge Orders:
Discharge Patient (As Directed); Ordered 06/07/24
Ordered By: Oscar Alarcon
Discharge Date and Time
Discharge Date/Time: 06/07/24 15:56
Print Language: E[employer] GUINEAN
--- NOTE | 2024-06-07 14:43 | CM ---
Patient seen at bedside with . [facility] form explained & signed. Placed in chart.
Dx: viral URI
Lives in a 1 story home with , no step to enter.
PLOF: Independent without assistive device. Drives
DME in home: cane, b/p cuff, glucometer.
Discharge today. No needs identified.
PLAN: Discharge home today. No needs.
to transport.
[2024-06-07 15:00] VITALS: BP 127/69
== END 2024-06-07 15:56 | disposition home or self-care (01) ==
LOC: 2 NORTH 17:05
PROVIDERS: Physician Assistant; ADMITTING PHYSICIAN Hospitalist; ATTENDING PHYSICIAN Hospitalist; EMERGENCY PHYSICIAN Emergency Medicine; FAMILY PHYSICIAN Family Medicine
DX: R06.02 Shortness of breath (principal); J06.9 Acute upper respiratory infection, unspecified; R06.6 Hiccough; E87.1 Hypo-osmolality and hyponatremia; E78.00 Pure hypercholesterolemia, unspecified; I11.9 Hypertensive heart disease without heart failure; E11.65 Type 2 diabetes mellitus with hyperglycemia; R00.0 Tachycardia, unspecified; R79.89 Other specified abnormal findings of blood chemistry; F17.210 Nicotine dependence, cigarettes, uncomplicated; K21.9 Gastro-esophageal reflux disease without esophagitis; R74.01 Elevation of levels of liver transaminase levels; F10.90 Alcohol use, unspecified, uncomplicated; I70.0 Atherosclerosis of aorta; I45.2 Bifascicular block; D72.829 Elevated white blood cell count, unspecified; K82.8 Other specified diseases of gallbladder; R74.8 Abnormal levels of other serum enzymes; J20.9 Acute bronchitis, unspecified; Q61.02 Congenital multiple renal cysts; Z79.82 Long term (current) use of aspirin; Z66 Do not resuscitate; Z95.0 Presence of cardiac pacemaker; Z11.52 Encounter for screening for COVID-19; Z86.010 Personal history of colon polyps; Z79.84 Long term (current) use of oral hypoglycemic drugs
CPT/HCPCS: 71046; 76700; 80053; 81003; 81015; 82962; 83036; 83880; 83930; 83935; 84300; 84443; 85025; 87811; 93005; 94640; 96361; 96374; 99285; 99406; G0378